=== PATIENT | female | born 2005 | race Two or more races ===

== ENCOUNTER 2025-05-20 10:42 | Day surgery (SDC) | payer OTHER ==
[2025-05-20] MEDS ORDERED: CEFAZOLIN SODIUM 1,000 MG VIAL IV SCH (12:15)
[2025-05-20] MEDS ORDERED: POVIDONE-IODINE 118 ML BOTT TOP ONE (12:15)
[2025-05-20] MEDS ORDERED: ZITHROMAX200 MG PO (16:05)
== END 2025-05-20 19:40 | disposition home or self-care (01) ==
LOC: CIR.AMB 10:42
PROVIDERS: ATTEND Obstetrics & Gynecology
DX: D39.8 Neoplasm of uncertain behavior of other specified female genital organs (principal)